=== PATIENT | female | born 1960 | race Caucasian/White ===

== ENCOUNTER 2017-04-11 05:26 | Emergency (ER) | payer OTHER ==
[~2017-04-11] VITALS: Ht 157.5 cm; Wt 72.7 kg
[~2017-04-11 05:26] MED LIST: FISH OIL 500 M1 EAC2 PO; MULT-36 PO; ROPI0.5T PO; VENL75TA3 PO
[2017-04-11 05:35] VITALS: BP 99/63; PULSE 71; RESP 18; O2SAT 100
[2017-04-11] MEDS ORDERED: Ondansetron 8 mg ODT Tablet ONE (05:41)
[2017-04-11] MEDS ORDERED: 0.9% Sodium Chloride 1,000 ML IV ONE (06:04)
--- NOTE | 2017-04-11 06:04 | ED.REPORT ---
HPI-Syncope Date of Service Apr 11, 2017 ED Provider: Geoffrey Mar MD The pt is a 56 y/o female presenting to the ED due to a syncopal episode. She had just finished a sleep study for [place] when she lost consciousness and began vomiting. She had just gotten out of the bed and was removing the sensors, closed her eyes and saw a black spot in the middle of her vision. She was falling forward and the nurse pushed her onto the bed so the pt was not injured. While she was laying in the bed she began to feel nauseated, walked to the sink, and vomited. Denies fever or myalgia. The pt felt completely normal yesterday prior to the sleep study. She reports taking Ropinirole, Velafaxine, Meloxicam and two Gabapentins for her hip pain as usual. She also reports having lower than usual BP which runs in her family. Nursing Notes Stated Complaint: SYNCOPE, VOMITING Chief Complaint: Syncope Nursing Notes Reviewed: Yes Allergies: Coded Allergies: citalopram (Verified Allergy, Intermediate, ANORGASMIA, 04/11/17) Scheduled Multivitamin (Daily Multiple Vitamin) 1 Each Tablet 1 EACH PO DAILY [place] Oil/[place]-3 Fatty Acids (Fish Oil 500 mg Softgel) 1 Each Capsule 1 EACH PO DAILY Venlafaxine (Venlafaxine) 75 Mg Tablet 75 MG PO BID Scheduled PRN Ropinirole (Requip) 0.5 Mg Tablet 0.5 MG PO TID PRN PRN For Restlessness General Time Seen by Provider: 06:05 Chief Complaint Lost consciousness Hx Obtained From: Patient Arrived By: Walk-in Onset Occurred: Just prior to arrival Symptom Duration: Since onset Immunizations: All up to date Recent Healthcare: No recent hospitalization, Recent doctor visit Similar Sx Previous: No Risk-Syncope Well's Criteria for PE Well's PE Score: 0-2 pts (low risk 3.6%) Past Medical History Past Medical History restless leg syndrome Pt describes having hereditary "lower than usual" blood pressure Past Surgical History None reported Smoking History Never Smoker Social History Alcohol Use: Denies alcohol use Drug Use: Denies drug use Ambulatory Status Independent Review of Systems Constitutional: Denies: Fever GI: Reports: Nausea, Vomiting Musculoskeletal: Reports: Joint pain (Hip ), Denies: Myalgia Neurologic: Reports: Syncope Complete sys rev & neg: except as marked. Physical Exam Initial Vital Signs Vital Signs (First) Date Time Temp Pulse Resp B/P Pulse Ox O2 Delivery O2 Flow Rate FiO2 04/11/17 05:35 36.7 71 18 99/63 100 Room Air Initial VS: Reviewed Head / Eyes: Atraumatic, Normocephalic, PERRL ENT: Mucous membranes moist, Conjunctiva normal, No scleral icterus Neck: Supple, Non-tender, Full range of motion Upper Extremities: Vascular intact, Neuro intact, No swelling, No tenderness Skin: Warm, Dry, No cyanosis Psychiatric: Mood/affect normal, Behavior normal, Normal thought content General/Constitutional: Awake, Alert Respiratory / Chest: Atraumatic, Breath sounds NL, Breath sounds = bilat, No respiratory distress Cardiovascular: Heart rate NL, Regular rhythm, Heart sounds NL Lower Extremity / Pelvis / MS: Atraumatic, Inspection NL, Full range of motion Neurologic: Oriented X3, Speech NL Interpretation & Diagnostics Lab Results Interpretation Result Diagram: 04/11/17 0620 04/11/17 0620 Test 04/11/17 06:20 White Blood Count 4.0th/mm3 (3.8-10.1) Red Blood Count 3.89mil/mm3 (3.90-5.20) Hemoglobin 12.2g/dL (12.0-15.6) Hematocrit 35.9% (35.0-46.0) Mean Corpuscular Volume 92.3fL (81-100) Mean Corpuscular Hemoglobin 31.4pg (27.0-35.0) Mean Corpuscular Hemoglobin Concent 34.0% (32.0-37.0) Red Cell Distribution Width 11.9% (12.3-15.4) Platelet Count 279bil/L (150-400) Neutrophils (%) (Auto) 47.4% (40-74) Lymphocytes (%) (Auto) 35.9% (14-46) Monocytes (%) (Auto) 11.6% (4-12) Eosinophils (%) (Auto) 4.3% (0-5) Basophils (%) (Auto) 0.8% (0-3) D-Dimer < 0.50mg/L FEU (<0.50) Sodium Level 140mEq/L (134-144) Potassium Level 4.1mEq/L (3.5-5.2) Chloride Level 103mEq/L (97-108) Carbon Dioxide Level 22mmol/L (18-29) Blood Urea Nitrogen 16mg/dL (6-24) Creatinine 0.56mg/dL (0.57-1.00) Estimat Glomerular Filtration Rate 161mL/min (>59) Glucose Level 96mg/dL (60-99) Calcium Level 8.9mg/dL (8.5-10.1) Magnesium Level 2.0mg/dL (1.6-2.6) Total Bilirubin 0.2mg/dL (0.0-1.2) Aspartate Amino Transf (AST/SGOT) 17U/L (0-50) Alanine Aminotransferase (ALT/SGPT) 10U/L (0-32) Alkaline Phosphatase 65U/L (25-150) Troponin T 0.010ug/L (0.0-0.011) Total Protein 6.7g/dL (6.4-8.4) Albumin 4.0g/dL (3.4-5.0) ECG Interpretation ECG Interpretation: Rate 57 NSR Time: 06:21 Interpreted by: ED physician X-Ray Chest Interpretation Chest Xray Interpretation: IMPRESSION: No acute cardiopulmonary disease. Dictated by: Beto Tabor M.D. on 04/11/2017 at 7:34 Approved by: Beto Tabor M.D. on 04/11/2017 at 7:35 View: Portable, 1 view Interpretation / Wet Read by: Interpret - Radiologist Re-Eval/Medical Decision Source of Hx: Old records Re-Evaluation/Progress : Time of Eval: 07:47 Re-Evaluation/Progress Note: Rechecked pt and took an orthostatic BP. There was no change. F/U instructions and RTER warnings given. All questions addressed. Counseled Regarding: Diagnosis, Lab results, Need for follow-up, When/why to return to ED Discharge & Departure Impression: Primary Impression: Syncope Syncope type: unspecified Qualified Code: R55 - Syncope and collapse Disposition: Home Discharge Condition All VS Reviewed: Yes Condition: Stable Patient Instructions: Syncope (ED) Additional Instructions: No dangerous cause for this fainting episode was discovered. I recommend follow -up with your primary care provider to discuss further evaluation if indicated. If you faint again today, I recommend you return to the emergency department. Otherwise, keep your self well hydrated and follow-up as discussed. Referrals: Teena Flood MD (PCP) Scribe Attestation Portions of this note were transcribed by Yuan Latham. I, Dr. Mar personally performed the history, physical exam and medical decision-making; I reviewed and confirmed the accuracy of the information in the transcribed note. copies to: Teena Flood MD, Kirk H MD Apr 11, 2017 06:04 Yuan Latham Apr 11, 2017 06:45
[2017-04-11 06:31] LABS: BASOPHILS % (AUTO) 0.8 % (0-3); EOSINOPHILS % (AUTO) 4.3 % (0-5); MONOCYTES % (AUTO) 11.6 % (4-12); Mean Corpuscular Hemoglobin 31.4 pg (27.0-35.0); Mean Corpuscular Volume 92.3 fL (81-100); NEUTROPHILS % (AUTO) 47.4 % (40-74); Platelet Count 279 bil/L (150-400)
[2017-04-11 06:51] LABS: TROPONIN T 0.01 ug/L (0.0-0.011)
--- NOTE | 2017-04-11 07:37 | DRSVH ---
PROCEDURE: X-RAY CHEST ONE VIEW, PORTABLE ([id number]) INDICATIONS: 56 year-old female with syncope. TECHNIQUE: One view of the chest was acquired. COMPARISON: None. FINDINGS: Surgical changes and devices: None. Lungs and pleura: No pleural effusions or pneumothorax. Lungs are clear. Mediastinum: Mediastinal contours appear normal. Heart size is normal. Bones and chest wall: No suspicious bony lesions. There is mid thoracic spine dextroscoliosis. Over lying soft tissues appear unremarkable. IMPRESSION: No acute cardiopulmonary disease. Dictated by: Beto Tabor M.D. on 04/11/2017 at 7:34 Approved by: Beto Tabor M.D. on 04/11/2017 at 7:35
[2017-04-11 07:47] VITALS: BP 108/83; PULSE 67; RESP 16; O2SAT 99
[2017-04-11 07:48] VITALS: BP 107/71; PULSE 65
== END 2017-04-11 07:54 | disposition home or self-care (01) ==
LOC: SED 05:26
DX: R55 Syncope and collapse (principal); R11.2 Nausea with vomiting, unspecified; M25.559 Pain in unspecified hip; Z88.8 Allergy status to other drugs, medicaments and biological substances
CPT/HCPCS: 36415; 71010; 80053; 83735; 84484; 85025; 85378; 93005; 96360; 99285; J7030